=== PATIENT | female | born 1980 ===

== ENCOUNTER 2018-02-02 11:13 | Emergency (ER) | payer BC ==
[2018-02-02 11:13] VITALS: BMI 28.3
[2018-02-02] MEDS ORDERED: Sodium Chloride 0.9% 500 ML IV STA (11:39)
--- NOTE | 2018-02-02 11:47 | ED PDOC ---
Arrival/HPI - General Chief Complaint: Female Genitourinary Time Seen by Provider: 02/02/18 11:14 Historian: Patient - History of Present Illness Narrative History of Present Illness (Text): 02/02/18 11:38 A 37 year old female, whose past medical history includes D&C on January 13 secondary to heavy menses with removal of benign polyp with negative endometrial biopsy, presents to the emergency department complaining of vaginal bleeding that started yesterday. Patient reports she thought it was her period but noticed it to be heavier bleeding than usual. Patient became concerned and arrived at the ER for evaluation. Notes also experiencing suprapubic cramping similar to menses. Reports filling 4 pads this morning. Patient denies any dysuria, vaginal discharge, urinary symptoms, vomiting, shortness of breath, chest pain, or any other complaints at this time. Reports baseline anemia with hgb 9 Past Medical History - Provider Review Nursing Documentation Reviewed: Yes - Infectious Disease Hx of Infectious Diseases: None - Tetanus Immunization Tetanus Immunization: Unknown - Past Medical History Past Medical History: No Previous - Psychiatric Hx Depression: No Hx Emotional Abuse: No Hx Physical Abuse: No Hx Substance Use: No - Past Surgical History Past Surgical History: Non-Contributing - Suicidal Assessment Feels Threatened In Home Enviroment: No Family/Social History - Physician Review Nursing Documentation Reviewed: Yes Family/Social History: No Known Family HX Hx Alcohol Use: No Hx Substance Use: No Hx Substance Use Treatment: No Allergies/Home Meds Allergies/Adverse Reactions: Allergies No Known Allergies Allergy (Verified 01/29/13 08:33) Review of Systems - Physician Review All systems were reviewed & negative as marked: Yes - Review of Systems Constitutional: absent: Fatigue, Weight Change, Fevers Eyes: absent: Vision Changes ENT: absent: Hearing Changes Respiratory: absent: SOB, Cough, Sputum, Wheezing Cardiovascular: absent: Chest Pain, Palpitations Gastrointestinal: Abdominal Pain (suprapubic cramping). absent: Constipation, Diarrhea, Nausea, Vomiting Genitourinary Female: Vaginal Bleeding. absent: Dysuria, Hematuria, Urine Output Changes Musculoskeletal: absent: Back Pain Skin: absent: Rash Neurological: absent: Headache, Dizziness Physical Exam Vital Signs Reviewed: Yes Temperature: Afebrile Blood Pressure: Normal Pulse: Regular Respiratory Rate: Normal Appearance: Positive for: Well-Appearing, Non-Toxic, Comfortable Pain Distress: None Mental Status: Positive for: Alert and Oriented X 3 - Systems Exam Head: Present: Atraumatic, Normocephalic Pupils: Present: PERRL Extroacular Muscles: Present: EOMI Conjunctiva: Present: Normal Mouth: Present: Moist Mucous Membranes Neck: Present: Normal Range of Motion Respiratory/Chest: Present: Clear to Auscultation, Good Air Exchange. No: Respiratory Distress, Accessory Muscle Use Cardiovascular: Present: Regular Rate and Rhythm, Normal S1, S2. No: Murmurs Abdomen: No: Tenderness, Distention, Peritoneal Signs Genitourinary/Pelvic Exam: Present: Cervical os Closed, Other (vaginal bleeding) Back: Present: Normal Inspection Upper Extremity: Present: Normal Inspection. No: Cyanosis, Edema Lower Extremity: Present: Normal Inspection. No: Edema Neurological: Present: GCS=15, CN II-XII Intact, Speech Normal Skin: Present: Warm, Dry, Normal Color. No: Rashes Psychiatric: Present: Alert, Oriented x 3, Normal Insight, Normal Concentration Medical Decision Making ED Course and Treatment: 02/02/18 11:42 Impression: 37 year old female with heavy vaginal bleeding and suprapubic cramping. No acute findings on physical exam; Plan: -- Transvaginal Ultrasound -- Labs -- IV Fluids -- Reassess and disposition Progress Notes: 02/02/18 13:53 Hgb at baseline. 02/02/2018 14:01 Transvaginal Ultrasound FINDINGS: UTERUS: Measures 9.4 x 5.8 x 6.5 cm. Retroverted. Heterogeneous echotexture. No discrete mass. ENDOMETRIUM: Measures 14-22 mm in diameter. Unremarkable. The endometrium is heterogeneous and vascular. There is no endometrial fluid identified. This could represent retained products of conception. Alternatively, this could represent hypervascular thickened [place] endometrium. Unable to differentiate on the basis of this examination. CERVIX: No cervical abnormality identified. RIGHT OVARY: Measures 2.4 x 1.0 x 2.4 cm. No solid mass. Normal flow. LEFT OVARY: Measures 2.8 x 2.1 x 2.4 cm. No solid mass. Normal flow. FREE FLUID: No significant free fluid noted. OTHER FINDINGS: None. IMPRESSION: Thickened hypervascular heterogeneous endometrium. Cannot rule out retained products of conception. See above. No other significant abnormality. Dictator: Leroy Jimenez MD 10/24/18 14:09 Called patient's photovoltaic installation technician Dr. Galarza at [phone]. Answering service reports that Dr. galarza is in a meeting till 230 and they are unable to give me covering physician and called disconnected when asked to speak to nurse. Patient has follow-up in her office at 3pm today. Patient hemodynamically stable with moderate bleeding noted on pelvic exam. Will dc to follow-up with Dr. Galarza today for further evaluation. Patient given copies of all labs and ultrasound. 02/02/18 14:16 - Lab Interpretations I have reviewed the lab results: Yes - RAD Interpretation Radiology Orders: 02/02/18 11:38 TRANSVAGINAL [US] Stat - Medication Orders Current Medication Orders: Sodium Chloride (Sodium Chloride 0.9%) 500 mls @ 999 mls/hr IV .Q31M STA Stop: 02/02/18 12:09 - Scribe Statement The provider has reviewed the documentation as recorded by the [facility] Provider Scribe Attestation: All medical record entries made by the Scribe were at my direction and personally dictated by me. I have reviewed the chart and agree that the record accurately reflects my personal performance of the history, physical exam, medical decision making, and the department course for this patient. I have also personally directed, reviewed, and agree with the discharge instructions and disposition. Disposition/Present on Arrival - Present on Arrival Any Indicators Present on Arrival: No History of DVT/PE: No History of Uncontrolled Diabetes: No Urinary Catheter: No History Surgical Site Infection Following: None - Disposition Have Diagnosis and Disposition been Completed?: Yes Diagnosis: Vaginal bleeding Disposition: HOME/ ROUTINE Disposition Time: 14:04 Patient Plan: Discharge Patient Problems: Current Active Problems Problem Status Onset Vaginal bleeding Acute Condition: GOOD Additional Instructions: Go directly to your Ob/gyns office. Bring copies of ultrasound and blood work. Return immediately with any worsening symptoms. Forms: [employer] ([place])
[2018-02-02 12:00] LABS: BASO # 0.01 K/mm3 (0.0-2.0); BASO % 0.1 % (0.0-3.0); EOS # 0.2 (0.0-0.7); EOS % 2.1 % (1.5-5.0); GRAN # 5.62 (1.4-6.5); GRAN % 65.8 % (50.0-68.0); HEMOGLOBIN 10.4 g/dL (12.0-16.0); LYMPH # 2.2 (1.2-3.4); LYMPH % 26.1 % (22.0-35.0); MEAN CELL VOLUME 75.8 fl (80.0-105.0); MEAN CORPUSCULAR HGB CONC 31.7 g/dl (31.0-37.0); MEAN PLATELET VOLUME 9.4 fl (7.0-11.0); MONO # 0.5 (0.1-0.6); MONO % 5.9 % (1.0-6.0); RBC 4.33 10^6/uL (3.5-6.1); RED CELL DISTRIBUTION WIDTH 14.6 % (11.5-14.5); WHITE BLOOD COUNT 8.5 10^3/ul (4.5-11.0)
[2018-02-02 12:07] LABS: INR 1.03; PARTIAL THROMBOPLASTIN TIME 26.7 Seconds (25.1-36.5); PROTHROMBIN TIME 11.8 SECONDS (9.4-12.5)
[2018-02-02 12:11] LABS: ALB/GLOB RATIO 1.2 (1.1-1.8); ALBUMIN 4.4 g/dL (3.0-4.8); ALT/SGPT 28 U/L (7-56); AST/SGOT 30 U/L (14-36); BLOOD UREA NITROGEN 17 mg/dL (7-21); GFR NON-AFRICAN AMERICAN > 60
--- NOTE | 2018-02-02 14:05 | US ---
Date of service: 02/02/2018 HISTORY: vaginal bleeding, hx dc 2 weeks ago COMPARISON: None available. TECHNIQUE: Transabdominal and transvaginal FINDINGS: UTERUS: Measures 9.4 x 5.8 x 6.5 cm. Retroverted. Heterogeneous echotexture. No discrete mass. ENDOMETRIUM: Measures 14-22 mm in diameter. Unremarkable. The endometrium is heterogeneous and vascular. There is no endometrial fluid identified. This could represent retained products of conception. Alternatively, this could represent hypervascular thickened [place] endometrium. Unable to differentiate on the basis of this examination. CERVIX: No cervical abnormality identified. RIGHT OVARY: Measures 2.4 x 1.0 x 2.4 cm. No solid mass. Normal flow. LEFT OVARY: Measures 2.8 x 2.1 x 2.4 cm. No solid mass. Normal flow. FREE FLUID: No significant free fluid noted. OTHER FINDINGS: None. IMPRESSION: Thickened hypervascular heterogeneous endometrium. Cannot rule out retained products of conception. See above. No other significant abnormality.
[2018-02-02 14:11] VITALS: TEMP 97.6
[2018-02-02 14:25] VITALS: BP 122/78; PULSE 82; RESP 17; O2SAT 99
== END 2018-02-02 14:22 | disposition home or self-care (01) ==
LOC: ED 11:13
DX: N93.9 Abnormal uterine and vaginal bleeding, unspecified (principal)
CPT/HCPCS: 76830; 80053; 84702; 85025; 85610; 85730; 96374; 99284; J1885; J7040